=== PATIENT | female | born 1950 | race Caucasian/White ===

== ENCOUNTER 2024-11-24 11:43 | Emergency (ER) | payer BC ==
[~2024-11-24] VITALS: Ht 170.2 cm; Wt 91.0 kg
[2024-11-24 11:45] VITALS: TEMP 36.8; O2SAT 98
[2024-11-24] MEDS: ACETAMINOPHEN 325MG TABLET PO ONE (12:12)
[2024-11-24] MEDS: LIDOCAINE HCL 1% 20ML VIAL INFIL ONE (12:34)
[2024-11-24] MEDS: BACITRACIN ZINC OINT UDPKT TOP ONE (12:34)
[2024-11-24 13:25] VITALS: BP 122/53; PULSE 83; RESP 17; O2SAT 98
== END 2024-11-24 13:47 | disposition home or self-care (01) ==
LOC: ER 11:43
DX: S01.21XA Laceration without foreign body of nose, initial encounter (principal); I10 Essential (primary) hypertension; E11.9 Type 2 diabetes mellitus without complications; Z88.2 Allergy status to sulfonamides; Z88.0 Allergy status to penicillin; Z88.5 Allergy status to narcotic agent; W18.30XA Fall on same level, unspecified, initial encounter; Y93.89 Activity, other specified; Y92.89 Other specified places as the place of occurrence of the external cause; Y99.8 Other external cause status
CPT/HCPCS: 99284; 70450; 70486; 72125; 12011; J2003